=== PATIENT | male | born 1975 | race Caucasian/White ===

== ENCOUNTER → 2018-08-14 | Outpatient (CLI) | payer BC ==
--- NOTE | 2018-08-14 15:56 | RAD ---
Three-view lumbar spine series Clinical indications: Chronic lumbar pain. No known injury. FINDINGS: The transverse processes are intact. 6 lumbar type vertebrae are evident. No discitis or lytic process or compression fracture or anterolisthesis is seen. There is minimal degenerative endplate spurring throughout the lumbar spine without significant disc space narrowing. IMPRESSION: No acute compression fracture. Minimal degenerative lumbar spondylosis. Electronically signed by: Jose Alberto Mccallum MD (08/14/2018 3:53 PM) [id number]
== END | disposition home or self-care (01) ==
LOC: PMG 08:47
PROVIDERS: ATTEND Family Medicine
DX: M47.816 Spondylosis without myelopathy or radiculopathy, lumbar region (principal); M46.06 Spinal enthesopathy, lumbar region
CPT/HCPCS: 72100